=== PATIENT | male | born 1970 | race Caucasian/White ===

== ENCOUNTER 2024-01-27 17:52 | Emergency (ER) | payer OTHER, SELFPAY ==
[2024-01-27 17:58] VITALS: BP 144/71
[2024-01-27 18:18] VITALS: BP 137/93
--- NOTE | 2024-01-27 18:30 | ED.GENMED ---
History of Present Illness
General
Chief Complaint: Heart Rate Problem
Source: patient
Exam Limitations: none
Time Seen by Provider: 01/27/24 18:15
History of Present Illness
History of Present Illness:
53-year-old male with history of paroxysmal atrial fibrillation. States he thinks he went into atrial fibrillation about 8 days ago. He feels a fluttering in his chest but denies chest pain or shortness of breath. He is on atenolol 25 mg twice a
day. He takes a baby aspirin daily but today took 4 baby aspirin. He is not anticoagulated otherwise. No other complaints at this time.
Past History
Past History
ED Past Medical History: Asthma, HTN, Hypercholesterolemia and Other
ED Past Surgical History: Appendectomy
Social History
Tobacco: Former smoker
Alcohol: Occasional
Drug: None
Personal:
Living: with family
Employment: Employed
Family History
Family History: Other
Phy Exam
Physical Exam
Physical Exam:
General: Well-appearing male no acute respiratory distress
; HEENT: Normocephalic atraumatic
Heart: Irregular rate and rhythm
Lungs: Clear no wheeze
Extremities: No cyanosis
Scores
[id number] Score for Afib Stroke Risk
Age in Years (65=0, 65-74=1, >/=75=2): <65
Sex (Female=+1): Male
Congestive Heart Failure History (Yes=+1): No
Hypertension History (Yes=+1): No
Stroke/TIA/Thromboembolism History (Yes=+2): No
Vascular Disease History (Yes=+1): No
Diabetes Mellitus (Yes=+1): No
Score: 0
Anticoagulation Recommendations: Anticoagulation not indicated (as validated in nonvalvular afib). Consider anticoagulation irrespective of score in patients with HCM
Course
Orders/Labs/Results
Orders:
Orders
01/27/24 18:01
Electrocardiogram (*1) Urgent
Reason for Study: Palpitations
EKG- Treatment ONCE
01/27/24 18:28
Complete Blood Count/With Diff Urgent
Comprehensive Metabolic Panel Urgent
TSH Reflex To Free T4 Urgent
Comment: ADDON
01/27/24 18:30
Add On- LAB Urgent
Tests Added?: tsh reflex to free t4
Diltiazem HCl [Cardizem] 20 mg IV NOW STA
01/27/24 20:32
Apixaban [Eliquis] 5 mg PO NOW STA
Abnormal Lab Results
01/27/24
18:28
Lymphocytes % 19.0 L %
(20.5-51.1)
BUN 22 H mg/dl
(9-20)
Total Bilirubin 1.4 H mg/dl
(0.2-1.3)
01/27/24 18:28
01/27/24 18:28
Vital Signs
Initial and Last Documented VS:
Initial Vital Signs
Temp Pulse Resp BP Pulse Ox
97.8 F 83 18 144/71 97
01/27/24 17:58 01/27/24 17:58 01/27/24 17:58 01/27/24 17:58 01/27/24 17:58
Last Documented Vital Signs
Temp Pulse Resp BP Pulse Ox
97.8 F 74 11 107/80 95
01/27/24 17:58 01/27/24 20:15 01/27/24 20:15 01/27/24 20:00 01/27/24 20:15
MDM/Problems Addressed
Differential Diagnosis Includes:
Patient with palpitations. Consider arrhythmia versus electrolyte abnormality versus thyroid disorder.
EKG reviewed and demonstrates atrial fibrillation. The rate does vary in the room the highest I saw was 110.
Will check labs including TSH and chemistry. Diltiazem ordered
*Critical Care Note
Total Time (30-74mins, 75-104mins- exclusive of procedures): Not Applicable
Update Note
Update Note:
Bolus of diltiazem did slow the heart rate down however patient still is in atrial fibrillation. He is asymptomatic and stable otherwise. Will start patient on Eliquis 5 mg twice a day and have him follow-up with his incident commander. He will
continue the atenolol twice a day.
ED Attending Note
-
Portions of this chart may have been created with voice recognition software.� Occasional wrong word or��sound alike� substitutions may have occurred due to the inherent limitations of voice recognition software.
Discharge Plan
Departure
Patient Disposition: Home (Routine Discharge)
Date of Disposition: 01/27/24
Time of Disposition: 20:33
Patient with high blood pressure during this ER visit?: No
Discharge Problem:
Atrial fibrillation
Instructions: Atrial Fibrillation (DC)
Prescriptions:
New
Eliquis 5 mg tablet
5 mg PO BID Qty: 60 0RF
No Action
atenolol 25 MG tablet
25 mg PO DAILY
omeprazole 20 MG capsule,delayed release(DR/EC)
20 mg PO DAILY Qty: 30 0RF
albuterol sulfate [Proventil HFA] 90 MCG/PUFF HFA aerosol inhaler
2 puff inhalation Q4HPRN PRN (Reason: asthma)
sucralfate 1 GM/10 ML suspension
1 gm PO ACHS Qty: 200 0RF
Referrals:
UNKNOWN - PT DOES,NOT KNOW [Family Provider] -
Activity Restrictions/Additional Instructions:
Continue with atenolol twice a day. Continue with Eliquis twice a day. Please follow-up with your incident commander for next available appointment. Return if worse.
Interventions
Interventions:
*Risk Screen - Suicide Last Done: 01/27/24 19:23
*General Assessment Last Done: 01/27/24 17:59
*Neglect/Abuse Screening Last Done: 01/27/24 19:23
ED- Fall Risk Assessment Last Done: 01/27/24 19:23
*ED COVID-19 Vaccine History Last Done: 01/27/24 17:59
ED- Cardiac Assessment Last Done: 01/27/24 18:30
ED- Pulmonary Assessment Last Done: 01/27/24 18:30
Discharge Date and Time
Print Language: TAMAZIGHT
[2024-01-27] MEDS: CARDIZEM 20 MG IV (18:34)
[2024-01-27 18:37] LABS: % Basophils 0.3 % (0-2); % Eosinophils 1.1 % (0-6); % Immature Granulocytes 0.2 % (0-0.5); % Monocytes 6.3 % (1.7-9.3); % Neutrophils 73.1 % (42.2-75.2); Absolute Eosinophils 0.1 10^3/uL (0-0.7); Absolute Lymphocytes 1.7 10^3/uL (1.2-3.4); Absolute Monocytes 0.6 10^3/uL (0.1-0.6); Absolute Neutrophils 6.4 10^3/uL (1.4-6.5); Hemoglobin 17.9 g/dL (13.0-18.0); Mean Corp Hgb Conc. 35.8 g/dL (33.0-37.0); Mean Corpuscular Hgb 30.5 pg (27.0-31.0); Mean Corpuscular Volume 85.3 fL (80.0-94.0); Mean Platelet Volume 10.2 fL (7.4-10.4); Nucleated Red Blood Cells % 0 % (-); Platelet Count 217 10^3/uL (130-400); Red Blood Cell Count 5.86 10^6/uL (4.70-6.10); Red Cell Dist. Width 12.3 % (11.5-14.5); White Blood Cell Count 8.7 10^3/uL (4.8-10.8)
[2024-01-27 18:59] LABS: ALT (SGPT) 30 U/L (0-50); AST (SGOT) 30 U/L (17-59); Albumin 4.4 g/dl (3.5-5.0); Alkaline Phosphatase 42 U/L (38-126); Blood Urea Nitrogen 22 mg/dl (9-20); Calcium 9.3 mg/dl (8.4-10.2); Carbon Dioxide 30 mmol/L (22-30); Chloride 100 mmol/L (98-107); Glucose 99 mg/dl (70-99); Potassium 4.7 mmol/L (3.5-5.1); Sodium 136 mmol/L (135-145); Total Bilirubin 1.4 mg/dl (0.2-1.3); Total Protein 6.9 g/dl (6.3-8.2); eGFR > 60.00
[2024-01-27 19:00] VITALS: BP 111/74
[2024-01-27 19:28] LABS: TSH Reflex To Free T4 1.04 uIU/ml (0.47-4.68)
[2024-01-27 20:00] VITALS: BP 107/80
[2024-01-27] MEDS: ELIQUIS 5 MG PO (20:39)
== END 2024-01-27 20:43 | disposition home or self-care (01) ==
LOC: EMR 17:52
PROVIDERS: Physician Assistant; EMERGENCY PHYSICIAN Emergency Medicine
DX: I48.91 Unspecified atrial fibrillation (principal); E78.00 Pure hypercholesterolemia, unspecified; I10 Essential (primary) hypertension; J45.909 Unspecified asthma, uncomplicated; R00.2 Palpitations; Z79.82 Long term (current) use of aspirin; Z87.891 Personal history of nicotine dependence; Z90.49 Acquired absence of other specified parts of digestive tract
CPT/HCPCS: 99283; 96374; 80053; 84443; 85025; 93005

== ENCOUNTER → 2024-03-23 09:28 | Day surgery (SDC) | payer OTHER, SELFPAY ==
--- NOTE | 2024-03-23 13:01 | ITS.CL.CARDI ---
[facility] - Cardioversion
Cardioversion
Procedure Report:
Procedure: Direct current electrical cardioversion
Pre-operative diagnosis: Persistent atrial fibrillation
Post-operative diagnosis: Persistent atrial fibrillation status post DC cardioversion to sinus rhythm
Anesthesia: MAC
Attending Physician: Alexei Booth MD
Procedure Description: The patient was brought to the electrophysiology laboratory in the fasting state. Adherence to anticoagulation regimen was confirmed. Informed consent was obtained from the patient prior to the start of the procedure.
Electrodes were placed on the patient and connected to an external defibrillator. Monitoring of blood pressure, ECG tracings, and pulse oximetry was initiated. The pads were applied to the patient in the anterior and posterior positions. The patient
was sedated by the anesthesiologist. A 200 joule biphasic synchronized shock was delivered to the patient under MAC anesthesia. Sinus rhythm was successfully restored. The patient recovered uneventfully from MAC anesthesia. There were no immediate
post-procedure complications. The patient left the lab in good condition. The attending physician was present throughout the entire procedure.
Impression: Successful direct current cardioversion with sikhism of sinus rhythm after one 200 joule biphasic synchronized shock.
== END ==
LOC: CATH 09:28
PROVIDERS: ATTENDING PHYSICIAN Internal Medicine Cardiovascular Disease; FAMILY PHYSICIAN Family Medicine; OTHER PHYSICIAN Internal Medicine Cardiovascular Disease
DX: I48.19 Other persistent atrial fibrillation (principal); Z79.01 Long term (current) use of anticoagulants; Z87.891 Personal history of nicotine dependence; I10 Essential (primary) hypertension; E78.00 Pure hypercholesterolemia, unspecified
CPT/HCPCS: 92960; 93005

== ENCOUNTER → 2024-04-12 14:50 | Outpatient (REF) | payer OTHER, SELFPAY | LOC: RCS 14:50 | PROVIDERS: ATTENDING PHYSICIAN Internal Medicine Cardiovascular Disease; FAMILY PHYSICIAN Family Medicine | DX: I10 Essential (primary) hypertension (principal) | CPT/HCPCS: 93306 ==

== ENCOUNTER → 2024-12-20 09:34 | Outpatient (REF) | payer OTHER, SELFPAY | LOC: HWRAD 09:34 | PROVIDERS: ATTENDING PHYSICIAN Otolaryngology; FAMILY PHYSICIAN Family Medicine | DX: J32.9 Chronic sinusitis, unspecified (principal) | CPT/HCPCS: 70486 ==